=== PATIENT | female | born 1955 | race Caucasian/White ===

== ENCOUNTER 2023-08-11 12:02 | Emergency (ER) | payer MEDICARE, SELFPAY ==
[2023-08-11 12:03] VITALS: BP 117/73; PULSE 66; RESP 14; TEMP 36.8; O2SAT 98; BMI 23.4
--- NOTE | 2023-08-11 13:10 | CT_ITS ---
STUDY: CT ABDOMEN AND PELVIS WITH CONTRAST REASON FOR EXAM: Female, 68 years old. abdominal pain RADIATION DOSAGE (If Supplied By Facility): CTDIvol = ( 20.39 ) mGy, DLP = ( 538.78 ) mGycm TECHNIQUE: Transaxial images were obtained from the dome of the diaphragm to the symphysis pubis without oral contrast. IV 100mL Isovue-300 was administered. Sagittal and coronal images were reconstructed. Individualized dose optimization techniques were used for this CT. COMPARISON: 05/28/2015 CT abdomen and pelvis FINDINGS: The visualized lung bases are unremarkable. The visualized portions of the heart are within normal limits. Normal liver. Normal gallbladder and extrahepatic biliary system. Normal spleen. Normal pancreas. Normal bilateral adrenal glands. Normal right kidney. Normal left kidney. Normal visualized stomach. Normal small intestine. Normal colon. The appendix is visualized and appears normal. Normal abdominal aorta. Normal inferior vena cava. Normal retroperitoneum. Normal urinary bladder. Normal abdominal wall. Normal osseous structures. CT/Abdomen/Pelvis W IV Cont ONLY IMPRESSION: No evidence of acute intra-abdominal process or focal inflammation. Normal appendix. Electronically Signed: Nick Berry DO at 14:25 [facility] ,
--- OUTSIDE RECORDS SUMMARY | 2023-08-11 13:13 | XMS RPT_ITS | CCD ---
Author Name Unknown Address [id number] [place] [address] Organization [facility] Care Team Providers Care Biological Inspector Name Role Phone Timothy Ortega Unavailable Unavailable Ajay Walker Unavailable Unavailable Timothy Ortega Unavailable Unavailable Cammy Nuno Primary Care Provider [facility] NURSE, [id number] Unavailab le Unavailable Ajay Walker Unavailable Unavailable Unavailable Cash Temple Unavailable [phone] No, Physician Primary Care Provider UnavailBETINA Cadet Attending Padmaja BRO Chambers Referring Unavai wendi NO, PHYSICIAN Primary Care Unavailable MD JEFFREY GERMAN Referring Unavailable MD JEFFREY GERMAN Attending Unavailable Furness, Dr. Cash Ayala Primary Care Un available Furness, Dr. Cash Ayala Primary Care Un available Furness, Dr. Cash Ayala Referring Un available Furness, Dr. Cash Ayala Attending Un available Furness, Dr. Cash Ayala Primary Care Un available Furness, Dr. Cash Ayala Attending Un available Furness, Dr. Cash Ayala Referring Un available Furness Cash GUEVARA Primary Care Provider CASH TEMPLE Attending Unavailable CASH TEMPLE Primary Care Unavailable CASH TEMPLE Primary Care Unavailable Allergies Allergy Classification Reported Allergen(s) Allergy Type Date of Onset Reaction(s) Facility (1 source) ALLERGIES NOT ON FILE; Translations: [ALLERGIES NOT ON FILE] Propensity to adverse reactions (disorder) [facility] 3 Repository Medications Current Medications Medication Drug Class(es) Dates Sig (Normalized) Sig (Original) levothyroxine sodium 0.137 mg oral tablet (19 sources) l-Thyroxine Start: 04-19-2015 End: 07-13-2024 take 1 tablet by mouth once daily levothyroxine (Synthroid, Levoxyl) 137 mcg tablet Indications: Routine general medical examination at health care facility Take 1 tablet (137 mcg) by mouth once daily. 90 tablet 3 07/14/2023 07/13/2024 Active Completed/Discontinued Medications Medication Drug Class(es) Dates Sig (Normalized) Sig (Original) ascorbic acid 500 mg oral tablet (5 sources) Vitamin C Vitamin C 500 MG Oral Tablet Quantity: 0 Refills: 0 Ordered: 15-Oct-2021 DO Active ciprofloxacin 250 mg oral tablet (3 sources) Quinolone Antimicrobial Start: 10-26-2021 take 1 tablet by mouth twice daily Ciprofloxacin HCl - 250 MG Oral Tablet Take 1 tablet twice daily Quantity: 6 Refills: 0 Ordered: 26-Oct-2021 Russell Schaefer II, MD Start : 26-Oct-2021 Active estradiol 0.1 mg/ml vaginal cream (3 sources) Estrogen Start: 01-04-2019 Estradiol 0.1 MG/GM Vaginal Cream INSERT 1 APPLICATOR Daily 1/4 of applicator Quantity: 2 Refills: 3 Jordan GUEVARA, PhD, [facility] Start : 04-Jan-2019 Active 42.5 GM Tube 24 hr oxybutynin chloride 5 mg extended release oral tablet (2 sources) Cholinergic Muscarinic Antagonist Start: 10-14-2022 take 1 tablet by mouth once daily Oxybutynin Chloride ER 5 MG Oral Tablet Extended Release 24 Hour Take 1 tablet daily Quantity: 30 Refills: 1 Ordered: 14-Oct-2022 Cash Temple MD Start : 14-Oct-2022 Active tamsulosin hydrochloride 0.4 mg oral capsule (7 sources) alpha-Adrenergic Zaida Start: 10-01-2021 take 1 capsule by mouth once daily Tamsulosin HCl - 0.4 MG Oral Capsule TAKE 1 CAPSULE Daily Quantity: 30 Refills: 2 Ordered: 26-Nov-2021 Marian Schultz MD, MPH, Jeffrey Start : 01-Oct-2021 Active tretinoin 1 mg/ml topical cream (1 source) Retinoid Start: 06-15-2019 Tretinoin 0.1 % External Cream APPLY TOPICALLY EVERY DAY TO AFFECTED AREAS Quantity: 1 Refills: 0 Ordered: 15-Oct-2022 Cash Temple MD Start : 15-Jun-2019 Active vitamin b12 0.1 mg oral tablet (5 sources) Vitamin B12 Vitamin B-12 100 MCG Oral Tablet Quantity: 0 Refills: 0 Ordered: 15-Oct-2021 DO Active Vitamin D-3 TABS (7 sources) Vitamin D-3 TABS Quantity: 0 Refills: 0 Ordered: 15-Oct-2021 DO Active Zinc (5 sources) Zinc CAPS Quantity: 0 Refills: 0 Ordered: 15-Oct-2021 DO Active Problems Active Problems Problem Classification Problem Date Documented Date Episodic/Chronic Abdominal pain (2 sources) Generalized abdominal pain; Translations: [Abdominal pain, generalized] Episodic Anxiety disorders (1 source) Anxiety; Translations: [Anxiety] Chronic Complications of surgical procedures or medical care (1 source) Postablative hypothyroidism; 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 Genitourinary symptoms and ill-defined conditions (16 sources) Mixed urinary incontinence; Translations: [Mixed incontinence (male) (female)] Onset: 06-06-2020 06-06-2020 Chronic Malaise and fatigue (12 sources) Fatigue; Translations: [Other malaise and fatigue] Episodic Menopausal disorders (16 sources) Atrophy of vagina; Translations: [Postmenopausal atrophic vaginitis] Onset: 06-06-2020 06-06-2020 Chronic Other screening for suspected conditions (not mental disorders or infectious disease) (18 sources) Patient encounter status; Translations: [Other screening mammogram] Onset: 10-21-2022 Episodic Other skin disorders (1 source) Hyperpigmentation of skin; Translations: [Hyperpigmentation] Episodic Other skin disorders (2 sources) Seborrheic keratosis; Translations: [Other seborrheic keratosis] Episodic Retinal detachments; defects; vascular occlusion; and retinopathy (1 source) Macular hole of left eye; Translations: [Macular cyst, hole, or pseudohole, left eye] Chronic Substance-related disorders (16 sources) Smoker; Translations: [Tobacco use disorder] Onset: 06-06-2020 06-06-2020 Chronic Thyroid disorders (3 sources) Hypothyroidism caused by drug; Translations: [Hypothyroidism due to medicaments and other exogenous substances] Onset: 08-01-2015 06-06-2020 Chronic Thyroid disorders (12 sources) Atrophy of thyroid - acquired; Translations: [Other specified acquired hypothyroidism] Episodic Urinary tract infections (2 sources) Chronic interstitial cystitis; Translations: [Interstitial cystitis (chronic) without hematuria] Onset: 08-01-2015 06-06-2020 Chronic Urinary tract infections (1 source) Recurrent urinary tract infection; Translations: [Recurrent UTI] Episodic Past or Other Problems Problem Classification Problem Date Documented Da te Episodic/Chronic Abdominal hernia (1 source) Inguinal hernia; Translations: [Inguinal hernia] Onset: 09-28-2012 06-06-2020 Episodic Genitourinary symptoms and ill-defined conditions (20 sources) Dysuria; Translations: [Nocturia] Onset: 08-01-2015 06-06-2020 Episodic Residual codes; unclassified (6 sources) Past history of procedure; Translations: [Other specified personal history presenting hazards to health] Onset: 09-24-2021 Episodic Spondylosis; intervertebral disc disorders; other back problems (1 source) Neck pain; Translations: [Cervicalgia] Onset: 04-07-2018 06-06-2020 Episodic Unclassified (1 source) Onset: 07-14-2023 07-14-2023 NEGATED: Highlighted row has not occurred!Residual codes; unclassified (11 sources) Disease Episodic Results Test Name Value Interpretation Reference Range Facil ity Vital Signs Date Time Vital Sign Value Performing Clinician Facility 07-14-2023 10:25-0500 Body height 167.6 cm Cash Temple MD Work Phone: [facility] 07-14-2023 10:25-0500 Body mass index (BMI) [Ratio] 23.73 kg/m2 Cash Temple MD Work Phone: [facility] 07-14-2023 10:25-0500 Body weight 66.68 kg Cash Temple MD Work Phone: [facility] 07-14-2023 10:25-0500 Diastolic blood pressure 66 mm[Hg] Cash Temple MD Work Phone: [facility] 07-14-2023 10:25-0500 Heart rate 65 /min Cash Temple MD Work Phone: [facility] 07-14-2023 10:25-0500 SaO2% (BldA) [Mass fraction] 95 % Cash Temple MD Work Phone: [facility] 07-14-2023 10:25-0500 Systolic blood pressure 102 mm[Hg] Cash Temple MD Work Phone: [facility] 10-14-2022 13:58-0500 Body height 167.64 cm Cash Temple Work Phone: [facility] Work Phone: 10-14-2022 13:58-0500 Body mass index (BMI) [Ratio] 22.03 kg/m2 Cash Temple Work Phone: [facility] Work Phone: 10-14-2022 13:58-0500 Body surface area Derived from formula 1.7 m2 Cash Temple Work Phone: [facility] Work Phone: 10-14-2022 13:58-0500 Body weight 61.92 kg Cash Temple Work Phone: [facility] Work Phone: 10-14-2022 13:58-0500 Diastolic blood pressure 58 mm[Hg] Cash Temple Work Phone: [facility] Work Phone: 10-14-2022 13:58-0500 Heart rate 64 /min Cash Temple Work Phone: [facility] Work Phone: 10-14-2022 13:58-0500 SaO2% (BldA) [Mass fraction] 94 % Cash Temple Work Phone: [facility] Work Phone: 10-14-2022 13:58-0500 Systolic blood pressure 132 mm[Hg] Cash Temple Work Phone: [facility] Work Phone: 01-07-2022 09:30-0400 Body height 168.9 cm Betina Humphrey MD Work Phone: [facility] 01-07-2022 09:30-0400 Body mass index (BMI) [Ratio] 22.1 kg/m2 Betina Humphrey MD Work Phone: [facility] 01-07-2022 09:30-0400 Body temperature 97.9 [degF] Betina Humphrey MD Work Phone: [facility] 01-07-2022 09:30-0400 Body weight 63.05 kg Betina Humphrey MD Work Phone: [facility] 01-07-2022 09:30-0400 Diastolic blood pressure 85 mm[Hg] Betina Humphrey MD Work Phone: [facility] 01-07-2022 09:30-0400 Heart rate 55 /min Betina Humphrey MD Work Phone: [facility] 01-07-2022 09:30-0400 Respiratory rate 16 /min Betina Humphrey MD Work Phone: [facility] 01-07-2022 09:30-0400 SaO2% (BldA) [Mass fraction] 96 % Betina Humphrey MD Work Phone: [facility] 01-07-2022 09:30-0400 Systolic blood pressure 126 mm[Hg] Betina Humphrey MD Work Phone: [facility] 10-26-2021 13:31-0400 Body height 167.64 cm Cash Temple Work Phone: [facility]Fppdjcq[facility]Kdfhgno Work Phone: 10-26-2021 13:31-0400 Body mass index (BMI) [Ratio] 25.06 kg/m2 Cash Temple Work Phone: [facility]nl[facility] Work Phone: 10-26-2021 13:31-0400 Body surface area Derived from formula 1.8 m2 Cashclaudia Amosess Work Phone: VM-Pxineuw-Sbgsxeh Work Phone: 10-26-2021 13:31-0400 Body weight 70.42 kg Cashclaudia Amosess Work Phone: YB-Uannuho-Lfyymws Work Phone: 10-01-2021 10:59-0500 Body height 167.64 cm Cashclaudia Amosess Work Phone: HL-Vvlhsza-Sgigckb Work Phone: 10-01-2021 10:59-0500 Body mass index (BMI) [Ratio] 24.22 kg/m2 Cashclaudia Temple Work Phone: UM-Tmwfrmu-Xzpvqce Work Phone: 10-01-2021 10:59-0500 Body surface area Derived from formula 1.77 m2 Cashclaudia Temple Work Phone: JY-Zpixjpl-Mfmeenp Work Phone: 10-01-2021 10:59-0500 Body weight 68.06 kg Cashclaudia Temple Work Phone: HI-Ykrfgro-Gqszjma Work Phone: 10-01-2021 10:59-0500 Diastolic blood pressure 77 mm[Hg] Cash T Furness Work Phone: WX-Cfelsmj-Twurpsu Work Phone: 10-01-2021 10:59-0500 Heart rate 69 /min Cash T Furness Work Phone: DF-Hvucyjx-Jchiklc Work Phone: 10-01-2021 10:59-0500 Systolic blood pressure 142 mm[Hg] Cash T Furness Work Phone: [place]-Mvgsodb-Itmmmtt Work Phone: 09-09-2021 09:43-0500 Body height 167.64 cm Ajay Walker Work Phone: [employer] [facility] Work Phone: 09-09-2021 09:43-0500 Body mass index (BMI) [Ratio] 24.14 kg/m2 Ajay Walker Work Phone: [facility] [facility] Work Phone: 09-09-2021 09:43-0500 Body surface area Derived from formula 1.77 m2 Ajay Laniergrecia Work Phone: [facility] [facility] Work Phone: 09-09-2021 09:43-0500 Body temperature 97.5 [degF] Ajay Laniergrecia Work Phone: [facility] [facility] Work Phone: 09-09-2021 09:43-0500 Body weight 67.84 kg Ajay Walker Work Phone: [employer] [facility] Work Phone: 09-09-2021 09:43-0500 Diastolic blood pressure 78 mm[Hg] Ajay Walker Work Phone: [employer] [facility] Work Phone: 09-09-2021 09:43-0500 Heart rate 64 /min Ajay Walker Work Phone: [employer] [facility] Work Phone: 09-09-2021 09:43-0500 SaO2% (BldA) [Mass fraction] 95 % AmandoElena Alasradha Work Phone: [employer] [facility] Work Phone: 09-09-2021 09:43-0500 Systolic blood pressure 122 mm[Hg] Ajay Walker Work Phone: [facility] Work Phone: 06-06-2020 09:35-0400 BMI (Body Mass Index) 22.47 kg/m2 Cammy Nuno [facility] 06-06-2020 09:35-0400 Body weight 63.87 kg Cammy [facility] 06-06-2020 09:35-0400 BP Diastolic 73 mm[Hg] [facility] 06-06-2020 09:35-0400 BP Systolic 123 mm[Hg] [facility] 06-06-2020 09:35-0400 Height 168.6 cm [facility] 06-06-2020 09:35-0400 Pulse (Heart Rate) 64 /min [facility] 07-11-2019 11:21-0500 BMI (Body Mass Index) 23.21 kg/m2 Timothy Ortega [facility] [place] 2420 DO Work Phone: 07-11-2019 11:21-0500 Body weight 65.23 kg Timothy Jordna XQ-RTMNB-Cihhtx ke 2420 DO Work Phone: 07-11-2019 11:21-0500 BP Diastolic 78 mm[Hg] Timothy Ortega LT-KGGUE-Pplgdc ke 2420 DO Work Phone: 07-11-2019 11:21-0500 BP Systolic 123 mm[Hg] Timothy Sommers-Oz MG-SYCEJ-Wmdmup ke 2420 DO Work Phone: 07-11-2019 11:21-0500 BSA (Body Surface Area) 1.74 m2 Timothy Sommers-Oz ED-SWLLL-Kyocrbdm 2420 DO Work Phone: 07-11-2019 11:21-0500 Height 167.64 cm Timothy Ortega NX-QOTYJ-Ljzuma ke 2420 DO Work Phone: 07-11-2019 11:21-0500 Pulse (Heart Rate) 50 /min Timothy GAYLE-[facility]-[place] 2420 DO Work Phone: 07-11-2019 11:21-0500 Pulse Oximetry 97 % Timothy GAYLE-OBGYN-[place] [facility] 2420 DO Work Phone: Encounters Encounter Date Encounter Type Care Provider Facility Start: 07-14-2023 End: 07-14-2023 ambulatory [facility] Start: 07-14-2023 End: 07-14-2023 Encounter for general adult medical examination without abnormal findings [facility] Start: 07-14-2023 End: 07-14-2023 Assay of hemosiderin, quant Cash Temple MD Work Phone: [facility] Work Phone: Start: 07-14-2023 End: 07-14-2023 Patient encounter procedure Cash Temple MD Work Phone: [facility] Procedures Date Procedure Procedure Detail Performing Clinician Start: 10-21-2022 POCT UA AUTOMATED MA NUALLY RESULTED CASH TEMPLE Start: 10-21-2022 Mammography Cash viera MD Work Phone: Start: 10-14-2022 Lipid 1996 panel - S mike or Plasma Cash Temple MD Work Phone: Start: 10-14-2022 Thyrotropin [Units/v olume] in Serum or Plasma Cash Temple MD Work Phone: Start: 06-06-2020 Urnls dip stick/tabl et rgnt non-auto w/o micrscp Cammy Nuno Work Phone: Start: 07-26-2019 Mammography Betina campbell MD Work Phone: Start: 07-23-2019 Blood count complete auto&auto difrntl wbc Timothy Ortega Start: 07-23-2019 Comprehensive metabo lic 2000 panel Timothy Ortega Start: 07-23-2019 PT/INR Timothy Clinton Start: 07-23-2019 Type and Screen Timothy Ortega Start: 07-23-2019 Urnls dip stick/tabl et rgnt auto w/o microscopy Timothy Ortega Start: 07-11-2019 Urodynamics Timothy Clinton Start: 01-07-2017 Colonoscopy Csah viera MD Work Phone: Start: 01-07-2017 Colonoscopy Cash Temple Work Phone: Plan of Treatment Date Care Activity Detail Author Start: 10-15-2027 Lipid panel Lipid Panel [facility] Start: 01-07-2027 Screening for malignant neoplasm of colon [facility] Start: 10-22-2023 Screening for malignant neoplasm of breast Mammogram [facility] Start: 10-15-2023 Thyroid stimulating hormone measurement TSH Level [facility] Start: 04-15-2023 Influenza vaccination Influenza Vaccine (#1) [facility] Start: 11-25-2022 NPV, Provider: Isi Thompson, Status: Pen, Time: 1:00 PM NPV, Provider: Isi Thompson, Status: Pen, Time: 1:00 PM [facility] Work Phone: Start: 04-15-2022 Influenza vaccination Sequential Influenza Vaccine (Season Ended) [facility] Start: 10-22-2021 FUV, Provider: Jeffrey German, Status: Pen, Time: 11:00 AM FUV, Provider: Jeffrey German, Status: Pen, Time: 11:00 AM -[facility] Work Phone: Start: 10-15-2021 URODYNAMIC, Provider: URODYNAMKAYLA OLSEN, Status: Pen, Time: 11:15 AM URODYNAMIC, Provider: URODYNAMICS KAYLA CHEN, Status: Pen, Time: 11:15 AM [facility] [place] Phone: Start: 10-01-2021 NPV, Provider: Jeffrey German, Status: Pen, Time: 11:30 AM NPV, Provider: Jeffrey German, Status: Pen, Time: 11:30 AM -[facility] Work Phone: Start: 2021 Fall risk assessment Falls Risk Assessment [facility] Start: 2021 Pneumococcal Vaccine: 65+ Years (1 - PCV) Pneumococcal Vaccine: 65+ Years (1 - PCV) [facility] Start: 2021 Pneumococcal Vaccine: Age 65+ (1 - PCV) Pneumococcal Vaccine: Age 65+ (1 - PCV) [facility] Start: 07-26-2020 Screening for malignant neoplasm of breast Mammogram [facility] Start: 04-15-2020 Influenza vaccination [facility] Start: 2006 Administration of herpes zoster vaccine Zoster Vaccines (1 of 2) [facility] Start: 2006 Colonoscopy COLORECTAL CANCER SCREENING DISCUSSION [facility] Start: 2006 Screening for malignant neoplasm of colon [facility] Start: 2006 Zoster vaccine hzv live for subcutaneous use ZOSTER (SHINGLES) VACCINE (1 of 2) [facility] Start: 2006 Zoster Vaccines (1 of 2) Zoster Vaccines (1 of 2) [facility] Start: 1996 Fasting lipid profile LIPID SCREENING [facility] Start: 1996 Screening mammography MAMMOGRAM SCREENING DISCUSSION [facility] Start: 1978 DTaP/Tdap/Td Vaccines (1 - Tdap) DTaP/Tdap/Td Vaccines (1 - Tdap) [facility] Start: 1977 Screening for malignant neoplasm of cervix CERVICAL CANCER SCREENING DISCUSSION [facility] Start: 1975 Third diphtheria, tetanus and acellular pertussis (DTaP) vaccination TDAP (ADULT) [facility] Start: 1974 Hepatitis C screening Hepatitis C Screening [facility] Start: [address] [facility] Start: 1971 HIV screening HIV Screening [facility] Start: 1969 HIV screening HIV SCREENING DISCUSSION [facility] Start: 1968 Depression screening using PHQ-9 (Patient Health Questionnaire 9) score Depression Screening (PHQ-2/9) [facility] Start: 1961 COVID-19 Vaccine (#1) COVID-19 Vaccine (#1) [facility] Start: 1959 History and physical examination, annual for health maintenance Wellness Visit [facility] Start: 1956 COVID-19 Vaccine (#1) COVID-19 Vaccine (#1) [facility] Start: 1956 Hepatitis C antibody, confirmatory test HEPATITIS C VIRUS SCREENING [facility] Start: 1956 Medicare Annual Wellness Visit Medicare Annual Wellness Visit (AWV) [facility] Start: 1956 Screening for malignant neoplasm of colon [facility] Start: 1956 Screening for osteoporosis [facility] Start: 1956 Tetanus vaccination Tetanus: Every 10yrs [facility] Payers Date Payer Category Payer Medicare [id number] 2021 Medicare [id number] 2019 Unknown LINDSEY PORTILLO O PPO POS [id number] 2019-Present [id number] 1956 Unknown [id number] 1956 Unknown [id number] 1956 Unknown [id number] 1956 Unknown [id number] 1956 Unknown [id number] 1956 Unknown [id number] Unknown Social History Date Type Detail Facility Assertion Unknown if ever smoked [facility] 8069 DO Work Phone: Start: 06-06-2020 End: 01-07-2022 Tobacco smoking status NHIS Current every day smoker [facility] History of tobacco use Cigarette Smoker [employer] [facility] Start: 06-06-2020 End: 01-07-2022 Cigarettes smoked current (pack per day) - Reported [employer] Start: 06-06-2020 Tobacco use and exposure Current user [facility] Start: 06-06-2020 End: 01-07-2022 Alcohol intake [facility] (finding[facility] Start: 1955 Sex Assigned At Not on file [employer] [facility] Start: 12-28-2021 End: 07-14-2023 Exposure to SARS-CoV-2 (event) Not sure [employer] [facility] Start: 01-07-2022 End: 07-14-2023 Tobacco use and exposure Smokeless tobacco non-user [facility] Start: 07-14-2023 Tobacco smoking stat NHIS Never smoked tobacco [facility] Work Phone: Start: 07-14-2023 Alcohol intake Lifetime non-d renato (finding) [facility] Work Phone: Gender identity Not on file [facility] Work Phone: Functional Status Date Assessment Result Facility NEGATED: Highlighted row Functional performance Functional status health issues are not documented Disease YI-SGQMC-Mvxzehfs 2420 DO Work Phone: Mental Status Date Assessment Result Facility NEGATED: Highlighted row Cognitive function [Interpretation] Cognitive status health issues are not documented Disease DV-QMKHV-Ssbnogfu 2420 DO Work Phone: History of Present illness Narrative 07-14-2023 Cash Temple MD - 07/14/2023 10:20 AM EST Note Date & Type Note Facility 07-14-2023 History of Present illness Narrative Subjective Reason for Visit: Gina Saavedra is an 68 y.o. female here for a Medicare Wellness visit. Past Medical, Surgical, and Family History reviewed and updated in chart. Reviewed all medications by prescribing practitioner or clinical pharmacist (such as prescriptions, OTCs, herbal therapies and supplements) and documented in the medical record. HPI Mammogram 2022 is okay Colonoscopy 2017, 10 years Recommend yearly flu shot Recommend yearly COVID shot. She has had COVID twice. Recommend Shingrix Recommend Prevnar 20 Patient Care Team: Cash Temple MD as PCP - General Review of Systems Constitutional: Negative for fatigue. Eyes: Negative for visual disturbance. Respiratory: Negative for cough, chest tightness and shortness of breath. Cardiovascular: Negative for chest pain and palpitations. Gastrointestinal: Negative for abdominal pain, constipation and diarrhea. Genitourinary: Positive for difficulty urinating, frequency and urgency. Skin: Negative for rash. Neurological: Negative for headaches. Objective Vitals: BP 102/66 Pulse 65 Ht 1.676 m (5' 6 ) Wt 66.7 kg (147 lb) SpO2 95% BMI 23.73 kg/m Physical Exam Constitutional: Appearance: Normal appearance. HENT: Head: Normocephalic and atraumatic. Cardiovascular: Rate and Rhythm: Normal rate and regular rhythm. Heart sounds: Normal heart sounds. Pulmonary: Effort: Pulmonary effort is normal. Breath sounds: Normal breath sounds. Skin: General: Skin is warm and dry. Neurological: General: No focal deficit present. Mental Status: She is alert and oriented to person, place, and time. Psychiatric: Mood and Affect: Mood normal. Behavior: Behavior normal. Thought Content: Thought content normal. Judgment: Judgment normal. Assessment/Plan Problem List Items Addressed This Visit None Visit Diagnoses Routine general medical examination at health care facility - Primary documented in this encounter [facility] Work Phone: History of Present illness Narrative 01-07-2022 Betina Humphrey MD - 01/07/2022 9:38 AM EDT Note Date & Type Note Facility 01-07-2022 History of Presen t illness Narrative HISTORY Patient Name: Gina Saavedra Date of Exam: 01/07/2022 Date of Surgery: 01/07/22 Chief Complaint Patient presents with Perioperative Medical Evaluation Macular cyst hole or pseudohole left eye Reason for visit/consultation: Medical risk stratification for same day surgery History of current illness: Gina Saavedra is a 66 y.o. female who presents for preoperative medical risk stratification prior to eye surgery at the request of Bro Nassar* Her medical conditions include: hypothyroid Patient Active Problem List Diagnosis Chronic interstitial cystitis Hypothyroidism due to medication Past Medical History: Diagnosis Date Disease of thyroid gland Type of anesthesia: Regional Anesthesia History: Yes, without complications Past Surgical History: Procedure Laterality Date HERNIA REPAIR No Known Allergies Review of Systems Constitutional: Negative for fever. HENT: Negative for nosebleeds. Eyes: Positive for visual disturbance. Negative for discharge. Respiratory: Negative for shortness of breath. Cardiovascular: Negative for chest pain. Gastrointestinal: Negative for abdominal pain. Skin: Negative for rash. Neurological: Negative for seizures. Hematological: Does not bruise/bleed easily. Psychiatric/Behavioral: Negative for confusion. Social History Social History Tobacco Use Smoking status: Every Day Packs/day: 1.00 Pack years: 0.00 Types: Cigarettes Smokeless tobacco: Never Substance Use Topics Alcohol use: Not Currently Social History Substance and Sexual Activity Drug Use Not on file Marital Status: Unknown History reviewed. No pertinent family history. Current Outpatient Medications Medication Sig Dispense Refill levothyroxine (SYNTHROID, LEVOTHROID) 137 MCG tablet Take 137 mcg by mouth daily . No current facility-administered medications for this visit. PHYSICAL Patient Name: Gina Saavedra Age: 66 y.o. BP 126/85 Pulse (!) 55 Temp 97.9 F (36.6 C) (Infrared) Resp 16 Ht 5' 6.5 Wt 63 kg (139 lb) SpO2 96% BMI 22.10 kg/m Physical Exam Vitals and nursing note reviewed. Constitutional: General: She is not in acute distress. Appearance: She is well-developed. She is not diaphoretic. HENT: Head: Normocephalic and atraumatic. Eyes: General: No scleral icterus. Right eye: No discharge. Left eye: No discharge. Cardiovascular: Rate and Rhythm: Normal rate and regular rhythm. Heart sounds: No murmur heard. Pulmonary: Effort: Pulmonary effort is normal. No respiratory distress. Breath sounds: Normal breath sounds. No wheezing or rales. Abdominal: General: Bowel sounds are normal. There is no distension. Palpations: Abdomen is soft. Tenderness: There is no abdominal tenderness. Musculoskeletal: Cervical back: Normal range of motion. Right lower leg: No edema. Left lower leg: No edema. Skin: General: Skin is warm and dry. Neurological: Mental Status: She is alert and oriented to person, place, and time. Psychiatric: Behavior: Behavior normal. Thought Content: Thought content normal. Judgment: Judgment normal. EKG Results: Not indicated No results found for this visit on 01/07/22. IMPRESSION/PLAN: Gina Saavedra is a 66 y.o. female who presents for preoperative medical risk stratification prior to eye surgery at the request of Bro Nassar* Risk factors for surgery include: Hypothyroid- chronic, stable Preoperative recommendations: I reviewed the patient's pertinent medical history and medications. No additional recommendations or changes are warranted prior to her scheduled surgery. Risk Assessment: The patient is currently in a medically optimal state and the risk of surgery is acceptable at this time. Questions regarding her medical issues were answered and discussed. Postoperative recommendations: Patient was instructed to continue her current medical regimen following surgery, unless instructed otherwise by her surgeon. The patient will follow up with her PCP for any additional medical concerns. This patient has an acceptable cardiac risk for the intended procedure, it is my professional opinion that the patient does not have any medical condition at this present time that significantly increase the risk for an adverse outcome. Thank you for the opportunity to evaluate your patient. Please feel free to contact our office with any questions. A copy of this evaluation was provided to the referring physician. documented in this encounter [facility] Evaluation note Note Date & Type Note Facility documented in this encounter [facility] Evaluation note Note Date & Type Note Facility documented in this encounter [facility] Work Phone: History of Present illness Narrative Note Date & Type Note Facility History of Present illness Narrative having long standing urination issues that are getting worse. needs refer to urology.Hypothyroidism - No fatigue/cold intolerance/hair changes/skin changes/weight gain.last TSH 5.1. no med adjustment?MMG ? 2019colonoscopy - ? when.labs todayEDG 2017 - okcolonoscopy 2017 - no polyps. [facility] Work Phone: History of Present illness Narrative Note Date & Type Note Facility History of Present illness Narrative 66-year-old very pleasant patient presents to the office today to Establish. LUTs are chronic and mild. Denies frequency and urgency. Denies dysuria and hematuria..Unable to empty bladder... Nocturia x4-5.. Caffeine does worsen LUTs.. No medications for LUTs..No Hx of Kidney Stones. Hx of UTI's. Patient reports pain and discomfort while trying to void urine, 4/10, does subside when she actually passes urine, intermittent, present for the past couple of years documentation, no fever no chills, no nausea no vomiting, no constipation. Her symptoms are associated with recurrent UTIs. Today her PVR was around 200, urine was positive. Patient has a history of C. difficile because of prolonged course of oral antibiotic. She reports needing to use Valsalva and abdominal pressure to initiate urine stream. She reports frequency and urgency with nocturia 3-4 times at night.We had a very long and extensive discussion with the patient regarding the pathophysiology, differential diagnosis, risk factor, management, natural history, incidence and diagnostic work-up of the condition. We discussed that she might have an element of neurogenic bladder that might be causing her symptoms. We discussed cystoscopy, urodynamics, urine culture and treat accordingly, also discussed tamsulosin but 1 mg p.o. nightly mechanism of action, risk, benefit, potential complication adverse event that might help her conditions. We discussed and instructed her to do clean catheterization which she completely declined at this point. [facility] Work Phone: History of Present illness Narrative Note Date & Type Note Facility History of Present illness Narrative having long standing urination issues that are getting worse. needs refer to urology.Hypothyroidism - No fatigue/cold intolerance/hair changes/skin changes/weight gain.last TSH 5.1. no med adjustment?MMG ? 2019colonoscopy - ? when.labs todayED 2017 - okcolonoscopy 2017 - no polyps. [facility] Work Phone: History of Present illness Narrative Note Date & Type Note Facility History of Present illness Narrative having long standing urination issues that are getting worse. needs refer to urology.Hypothyroidism - No fatigue/cold intolerance/hair changes/skin changes/weight gain.last TSH 5.1. no med adjustment?MMG ? 2019colonoscopy - ? when.labs todayEDG 2017 - okcolonoscopy 2017 - no polyps. [facility] Work Phone: History of Present illness Narrative Note Date & Type Note Facility History of Present illness Narrative Multiple lesions on her back consistent with seborrheic keratoses. The one that is just in the middle lower back on the right above the bra line has a little bit of moderate brown color in the upper right quadrant. Continue to watch the lesions for now if they change in color we can consider biopsy.Mammogram todayColonoscopy 2017, 10 years.Hypothyroidism - No fatigue/cold intolerance/hair changes/skin changes/weight gain.Seen specialist before still having troubles with her bladder. She cannot remember if she ever tried an overactive bladder medication. The Flomax did not help.Oxybutynin 5 mg dailyRefer to urology, [facility]. [facility] Work Phone: History of Present illness Narrative Note Date & Type Note Facility History of Present illness Narrative Multiple lesions on her back consistent with seborrheic keratoses. The one that is just in the middle lower back on the right above the bra line has a little bit of moderate brown color in the upper right quadrant. Continue to watch the lesions for now if they change in color we can consider biopsy.Mammogram todayColonoscopy 2017, 10 years.Hypothyroidism - No fatigue/cold intolerance/hair changes/skin changes/weight gain.Seen specialist before still having troubles with her bladder. She cannot remember if she ever tried an overactive bladder medication. The Flomax did not help.Oxybutynin 5 mg dailyRefer to urology, [facility]. [facility] Work Phone: Summary Purpose Family History No Family History Records FoundUnknown Family Member Name Dates Details Family history unknown(V49.8 9, Z78.9) Comments:Other Status:Active Unknown Family Member Name Dates Details Family history unknown(V49.8 9, Z78.9) Comments:Other Status:Active Unknown Family Member Name Dates Details Family history unknown(V49.8 9, Z78.9) Comments:Other Status:Active Unknown Family Member Name Dates Details Family history unknown: Othe r(V49.89, Z78.9) Status:Active Unknown Family Member Name Dates Details Family history unknown: Othe r(V49.89, Z78.9) Status:Active Unknown Family Member Name Dates Details Family history unknown: Othe r(V49.89, Z78.9) Status:Active Unknown Family Member Name Dates Details Family history unknown: Othe r(V49.89, Z78.9) Status:Active Unknown Family Member Name Dates Details Family history unknown: Othe r(V49.89, Z78.9) Status:Active Unknown Family Member Name Dates Details Family history unknown: Othe r(V49.89, Z78.9) Status:Active Unknown Family Member Name Dates Details Family history unknown: Othe r(V49.89, Z78.9) Status:Active Unknown Family Member Name Dates Details Family history unknown: Othe r(V49.89, Z78.9) Status:Active Unknown Family Member Name Dates Details Family history unknown: Othe r(V49.89, Z78.9) Status:Active Unknown Family Member Name Dates Details Family history unknown: Othe r(V49.89, Z78.9) Status:Active Unknown Family Member Name Dates Details Family history unknown: Othe r(V49.89, Z78.9) Status:Active Unknown Family Member Name Dates Details Family history unknown: Othe r(V49.89, Z78.9) Status:Active Advance Directives No Advanced Directives Records FoundNo Advanced Directives Records FoundNo Advanced Directives Records FoundNo Advanced Directives Records FoundNo Advanced Directives Records FoundNo Advanced Directives Records FoundNo Advanced Directives Records FoundNo Advanced Directives Records Found History of Present Illness * Cammy Nuno MD - 06/06/2020 9:00 AM EDT Chief Complaint Patient presents with New Patient Thyroid Problem Patient states 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 Patient states she had a laproscopy a year ago and didn't find anyting wrong. Anxiety Patient states she has been anxious and overwhelmed recently Skin Discoloration Patient states she has a dark spot on the end of her nose she would like looked at,. HPI: Regarding Hypothyroidism: She presents to review her labs for her hypothyroidism. These reveal that her medication dose does not need to be adjusted at this time. Her TSH is in the normal range and her Free T4 is also normal. She denies any symptoms associated with hyperthyroidism. No tachycardia, diarrhea, heat intolerance, tremor, etc. She denies any symptoms associated with hypothyroidism: constipation, dry skin, hair loss. She states she has been taking her medication as prescribed on an empty stomach in the morning without missing doses. Urinary concerns: has a history of recurrent infections, was treated with multiple antibiotics and ended up getting clostridium difficile. She had a surgery and they dilated her urethra, she doesn't drink water drinks a lot of coffee, has to strain to urinate. Was told she has interstitial cystitis, she has been to several urologists. Regarding Anxiety/Depression: Gina presents with the complaint of anxiety/depression which is currently under poor control. She reports the following triggers: stress, a son was killed in a motorcycle accident in 2007 Other symptoms include: watches news constantly, anxious about world events, anxious about her other son, Current treatment includes: see med list Significant medical conditions: see problem list Skin discoloration: on the tip of her nose, just noticed it within the past two weeks ROS: Review of Systems Nurse Note: Review of Systems Constitutional: Negative for fatigue and fever. HENT: Negative for congestion, ear pain and sore throat. Eyes: Negative for pain and redness. Respiratory: Negative for cough and shortness of breath. Cardiovascular: Negative for chest pain and palpitations. Gastrointestinal: Negative for abdominal pain, constipation, diarrhea, nausea and vomiting. Genitourinary: Positive for difficulty urinating and frequency. Negative for dysuria. Musculoskeletal: Negative for arthralgias and myalgias. Skin: Negative for rash and wound. Neurological: Negative for dizziness and headaches. All other systems reviewed and are negative. Past medical/family/social history: reviewed and updated, see documented in patient's chart. Physical Exam: BP 123/73 Pulse 64 Ht 5' 6.38 (1.686 m) Wt 140 lb 12.8 oz (63.9 kg) BMI 22.47 kg/m Smoking Status Current Every Day Smoker Body mass index is 22.47 kg/m . Physical Exam HENT: Head: Normocephalic and atraumatic. Eyes: Pupils: Pupils are equal, round, and reactive to light. Neck: Musculoskeletal: Normal range of motion and neck supple. Cardiovascular: Rate and Rhythm: Normal rate and regular rhythm. Heart sounds: Normal heart sounds. Pulmonary: Effort: Pulmonary effort is normal. Breath sounds: Normal breath sounds. Abdominal: Palpations: Abdomen is soft. Skin: General: Skin is warm and dry. Comments: Tip of nose with hyperpigmentation Neurological: Mental Status: She is alert and oriented to person, place, and time. Psychiatric: Mood and Affect: Mood is anxious. Assessment/Plan: 1. Postablative hypothyroidism Update labs - TSH; Future - T4 FREE; Future 2. Recurrent UTI Consider referral to uro/test engine evaluator if desired, she prefers to wait for now - POCT URINALYSIS DIPSTICK NON AUTOMATED 3. Anxiety Discussed that a lot of her anxiety is situational, recommend she consider counseling. Discussed some ideas to help reduce her anxiety, such as not watching the news, removing herself from her son's relationship and guiding them to resolving their own issues 4. Hyperpigmentation Observe area and if there is any change then return for biopsy Orders and follow up as documented in patient record; There are no discontinued medications. Requested Prescriptions No prescriptions requested or ordered in this encounter Patient was advised to call with any questions or concerns. If symptoms worsen patient was advised to follow up in our office or the Emergency Dept. Benefits, Risks, Contraindications, and Complications of recommended treatments were explained the patient understands and agrees to proceed with plan. Cammy Nuno MD 06/06/2020 * Izabella Romo - 06/06/2020 9:00 AM EDT Nurse Note: Review of Systems Constitutional: Negative for fatigue and fever. HENT: Negative for congestion, ear pain and sore throat. Eyes: Negative for pain and redness. Respiratory: Negative for cough and shortness of breath. Cardiovascular: Negative for chest pain and palpitations. Gastrointestinal: Negative for abdominal pain, constipation, diarrhea, nausea and vomiting. Genitourinary: Positive for difficulty urinating and frequency. Negative for dysuria. Musculoskeletal: Negative for arthralgias and myalgias. Skin: Negative for rash and wound. Neurological: Negative for dizziness and headaches. All other systems reviewed and are negative. documented in this encounter Assessments Diagnosis Postablative hypothyroidism- Primary Other postablative hypothyroidism Recurrent UTI Urinary tract infection, site not specified Anxiety Anxiety state, unspecified Hyperpigmentation Dyschromia, unspecified Chief Complaint EST CARE/ COVID 1MO AGO W/ CONSTIPATIONEstablishEST CARE/ COVID 1MO AGO W/ CONSTIPATIONUrodynamics completed today.EST CARE/ COVID 1MO AGO W/ CONSTIPATION incomplete Bladder Emptying, Dysuriaincomplete Bladder Emptying, DysuriaLESION ON BACKLESION ON BACK Additional Source Comments INFORMATION SOURCE (unrecogn ized section and content) DATE CREATED AUTHOR AUTHOR'S ORGANIZ ATION 07/27/2019 [facility] DATE CREATED AUTHOR AUTHOR'S ORGANIZ ATION 05/15/2021 [facility] DATE CREATED AUTHOR AUTHOR'S ORGANIZ ATION 01/08/2022 [facility] DATE CREATED AUTHOR AUTHOR'S ORGANIZ ATION 10/16/2022 [facility] DATE CREATED AUTHOR AUTHOR'S ORGANIZ ATION 10/16/2022 [employer] DATE CREATED AUTHOR AUTHOR'S ORGANIZ ATION 10/24/2022 [facility] DATE CREATED AUTHOR AUTHOR'S ORGANIZ ATION 07/17/2023 [facility] Reason for Visit (unrecogniz ed section and content) Reason Comments Perioperative Medical Evaluation 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 This clinical summary was aggregated from multiple sources. Caution should be exercised in using it in the provision of clinical care. This summary normalizes information from multiple sources, and as a consequence, information in this document may materially change the coding, format and clinical context of patient data. In addition, data may be omitted in some cases. CLINICAL DECISIONS SHOULD BE BASED ON THE PRIMARY CLINICAL RECORDS. [facility]. provides no warranty or guarantee of the accuracy or completeness of information in this document.
[2023-08-11] MEDS: 0.9% Normal Saline (1000mL) 1,000 ML 1000 ML IV (13:20)
[2023-08-11 13:31] LABS: Absolute Lymphocyte Count 1.22 X10^3/uL (0.83-4.51); Absolute Neutrophil Count 2.3 X10^3/uL (2.0-7.7); Basophil# 0.03 X10^3/uL; Basophil% 0.7 % (0-1); Eosinophil# 0.12 X10^3/uL; Eosinophils% 2.9 % (0-5); Hematocrit 41.6 % (37-47); Hemoglobin 13.6 g/dL (12.0-15.0); Lymphocyte # 1.22 X10^3/ul (0.83-4.51); Lymphocyte % 29.5 % (19-41); Mean Corp Hgb Conc 32.7 g/dL (32-36); Mean Corpuscular Hgb 30.6 pg (27.0-32.0); Mean Corpuscular Volume 93.7 fL (81-99); Mean Platelet Vol. 9.5 fl (6.2-12.0); Monocyte# 0.44 X10^3/uL; Monocyte% 10.6 % (0-10); NRBC Flagged by Analyzer 0 % (0-5); Neutrophil # 2.31 X10^3/uL (2.7-7.7); Neutrophil % 55.8 % (47-70); Platelet Count 196 K/mm3 (150-450); RBC Distribution Width CV 12.1 % (11.6-14.6); Red Blood Count 4.44 M/mm3 (4.2-5.4); White Blood Count 4.1 K/mm3 (4.4-11.0)
[2023-08-11 13:32] LABS: Bacteria 0 SEEN /hpf (None Seen); Mucous, Urine 0 SEEN /hpf (<or=2+); Red Blood Cells-Urine 0 SEEN /hpf (0-5); Squamous Epithelial Cells - UA 0 SEEN /hpf (5-10); White Blood Cells 0 SEEN /hpf (0-5)
[2023-08-11 13:37] LABS: Color, Urine Yellow (Yellow); Glucose, Dipstick Normal (Normal); Ketone-Dipstick Negative (Negative); Leukocyte Esterase-Dipstick Negative /ul (Negative); Nitrite-Dipstick Negative (Negative); Occult Blood-Urine Negative /ul (Negative); Protein-Dipstick Negative (Negative); Specific Gravity, Urine 1.015 (1.002-1.030); Urine Bilirubin Dipstick Negative (Negative); Urine Clarity Sl. Cloudy (Clear); Urine Urobilinogen Normal (Normal); Urine pH 6.5 (5.0 - 8.0)
[2023-08-11 13:49] LABS: ALB/GLOB Ratio 0.9 RATIO (0.9-2.4); AST(SGOT) 12 U/L (15-37); Alanine Aminotransfer ALT/SGPT 26 U/L (13-56); Albumin, Serum 3.3 g/dL (3.2-5.0); Alkaline Phosphatase 61 U/L (45-117); Anion Gap 2 (5-15); BUN 14 mg/dL (7-18); BUN/Creat Ratio 17.1 RATIO (10-20); Calcium,Total 9.3 mg/dL (8.5-10.1); Chloride 105 mmol/L (98-107); Creatinine, Serum 0.82 mg/dL (0.55-1.02); EST Glomerular Filtration Rate 74 mL/min (>60); Est Glom Filt Rate - Afr Amer 90 mL/min (>60); Estimated Creatinine Clearance 62.32 ml/min; Globulin 3.5 g/dL (2.2-4.2); Glucose 87 mg/dL (74-106); Lipase 41 U/L (13-75); Potassium 4.1 mmol/L (3.5-5.1); Protein, Total 6.8 g/dL (6.4-8.2); Sodium Level 139 mmol/L (136-145)
[2023-08-11 14:46] VITALS: BP 137/82; PULSE 84; RESP 16; O2SAT 96
--- NOTE | 2023-08-11 15:10 | EX.ED.DYSGE1 ---
HPI History of Present Illness Chief Complaint: Abd Pain Informant: patient and spouse/S.O. Narrative Narrative: 68-year-old female presenting to the emergency room with abdominal pain. Patient had some constipation which has resolved. She has for the past 2 days she has been in bed. She notes mostly lower abdominal pain that is contraction-like. She notes that she has been evaluated for inability to fully empty her bladder. She denies any new symptoms with that. She notes some radiation to her back. No fevers. No abnormal vaginal bleeding. PFSH PFSH Home Medications Synthroid 125 mcg PO DAILY 08/17/14 [History Last Taken Unknown] etodolac 300 mg capsule 300 mg PO TIDCM ##30 08/17/14 [Rx Last Taken Unknown] hydrocodone-acetaminophen 5-325mg 5mg-325mg 1 - 2 tab PO Q6H PRN PRN Pain ##20 08/17/14 [Rx Last Taken Unknown] magnesium citrate 300 ml PO X1 #1,200 mL 05/28/15 [Rx Last Taken Unknown] dicyclomine 20 mg tablet 20 mg PO TID PRN abdominal pain #15 tabs 08/11/23 [Rx Last Taken Unknown] oxycodone-acetaminophen 5 mg-325 mg tablet 1 tab PO Q6H PRN PRN Pain 3 days #12 TABLETS 08/11/23 [Rx Last Taken Unknown] Allergy/AdvReac Type Severity Reaction Status Date / Time No Known Allergies Allergy Verified 08/11/23 12:03 Social History Smoking Status: Current some day smoker tobacco type: cigarettes ROS ROS ED Constitutional Constitutional ED: Denies chills, fever(s) or weight loss Eyes Eyes: Denies change in vision or diplopia ENT ENT ED: Denies ear pain, rhinorrhea or sore throat Cardiovascular Cardiovascular: Denies chest pain, orthopnea, palpitations or racing heartbeat Respiratory/Chest Respiratory/Chest: Denies cough, dyspnea or orthopnea Gastrointestinal Gastrointestinal: Reports abdominal pain, constipation and nausea; Denies diarrhea or vomiting Genitourinary Genitourinary ED: Reports urinary frequency and other Details: Inability to empty bladder (chronic) ; Denies dysuria or hematuria Musculoskeletal Musculoskeletal: Reports back pain; Denies arthralgias or myalgias Integumentary Denies abscess or rash Neurologic Neurologic: Denies headache(s) or weakness Psychiatric Psychiatric: Denies anxiety, depression, suicidal ideation or suicidal thoughts Endocrine Endocrinology: Denies polydipsia, polyphagia or polyuria Allergic/Immunologic Allergic/Immunologic ED: Denies mouth swelling, tongue swelling or urticaria EXAM Physical Exam Const Vital Signs: 08/11/23 12:03 08/11/23 14:46 Temperature 98.2 F Temperature Source Temporal Pulse Rate 66 84 Respiratory Rate 14 16 Blood Pressure 117/73 137/82 H Blood Pressure Mean 87 100 Pulse Ox 98 96 Oxygen Delivery Method Room Air Room Air Positive well nourished and well developed General Appearance ED: well developed HEENT Reports normocephalic, head/scalp atraumatic and moist mucous membranes Eyes PERRL and EOMs intact bilaterally Neck no lymphadenopathy, supple and no JVD Resp normal respiratory effort and clear to auscultation bilaterally Cardio regular rate, regular rhythm and no murmurs GI Inspection: Negative for abdominal distention Auscultation: normoactive bowel sounds Palpation: soft and tender suprapubic; Negative for guarding or rebound tenderness present Back/Spine no CVA tenderness and normal ROM Extremity normal to inspection General Extremety ED: Negative for edema General Extremity: Negative for edema Neuro oriented x3 and CN's II-XII intact bilaterally Sensorium / Orientation: alert Motor Exam: strength 5/5 throughout Psych mental status grossly normal Mood & Affect: Negative for depressed or tearful Skin no rashes or lesions noted and no wounds MDM MDM MDM Narrative Medical decision making narrative: Basic blood work showed a white count of 4.1. Normal creatinine. Liver enzymes are normal. Lipase is normal. Urinalysis shows no overt infection. CT of the and pelvis with IV contrast does not demonstrate anything acute to explain her symptoms. At this point I do not have a clear etiology for the patient's symptoms. I do feel that she can be discharged home with follow-up if not improving return if worsening. I will write for Bentyl and a small amount of pain medication. History & Record Review Discussion w/independent historian: Patient and Significant other Lab Data Attestation: I reviewed the patient's lab results. Labs: Laboratory Results - last 24 hr 08/11/23 08/11/23 13:04 13:25 WBC 4.1 L RBC 4.44 Hgb 13.6 Hct 41.6 MCV 93.7 MCH 30.6 MCHC 32.7 RDW Std Deviation 42.0 RDW Coeff of Wilfred 12.1 Plt Count 196 MPV 9.5 Immature Gran % (Auto) 0.500 Neut % (Auto) 55.8 Lymph % (Auto) 29.5 [place] % (Auto) 10.6 H Eos % (Auto) 2.9 Baso % (Auto) 0.7 Absolute Neuts (auto) 2.3 Absolute Lymphs (auto) 1.22 Nucleated RBC % 0 Sodium 139 Potassium 4.1 Chloride 105 Carbon Dioxide 32.0 Anion Gap 2 L BUN 14 Creatinine 0.82 Estim Creat Clear Calc 62.32 Est GFR (MDRD) Af Amer 90 Est GFR (MDRD) Non-Af 74 BUN/Creatinine Ratio 17.1 Glucose 87 Calcium 9.3 Total Bilirubin 0.10 L AST 12 L ALT 26 Alkaline Phosphatase 61 Total Protein 6.8 Albumin 3.3 Globulin 3.5 Albumin/Globulin Ratio 0.9 Lipase 41 Urine Color Yellow Urine Clarity Sl. Cloudy Urine pH 6.5 Ur Specific [place] 1.015 Urine Protein Negative Urine Glucose (UA) Normal Urine Ketones Negative Urine Occult Blood Negative Urine Nitrite Negative Urine Bilirubin Negative Urine Urobilinogen Normal Ur Leukocyte Esterase Negative Urine RBC 0 SEEN Urine WBC 0 SEEN Ur Squamous Epith Cells 0 SEEN Urine Bacteria 0 SEEN Urine Mucus 0 SEEN Radiography Diagnostic Testing: Clinical Impression(s) from Imaging Studies Abdomen/Pelvis CT 08/11/23 13:10 IMPRESSION: No evidence of acute intra-abdominal process or focal inflammation. Normal appendix. Electronically Signed: Nick Berry DO at 14:25 EST , Discharge Plan Triage Chief Complaint: Abd Pain ED Provider: Rock Patten Dx/Rx/DC Orders Clinical Impression: Abdominal pain Instructions: ED Abdominal Pain Unkn Cause Fem Prescriptions: New oxycodone-acetaminophen [oxycodone-acetaminophen] 5-325 mg tablet 1 tab PO Q6H PRN PRN (Reason: Pain) 3 Days Qty: 12 0RF dicyclomine 20 mg tablet 20 mg PO TID PRN (Reason: abdominal pain) Qty: 15 0RF No Action Synthroid 125 mcg PO DAILY etodolac 300 MG capsule 300 mg PO TIDCM Qty: 30 0RF Rx Instructions: with food hydrocodone-acetaminophen 1 TABLET tablet 1 - 2 tab PO Q6H PRN PRN (Reason: Pain) Qty: 20 0RF Rx Instructions: causes drowsiness magnesium citrate 300 ML solution 300 ml PO X1 Qty: 1200 0RF Rx Instructions: 300 ML EVERY 8 HOURS UNTIL LARGE BM Primary Care Provider: Ajay Walker Referrals: Ajay Walker MD [Primary Care Provider] - 1 Week
[2023-08-11 15:14] VITALS: BP 108/69; PULSE 72; RESP 15; O2SAT 98
== END 2023-08-11 15:17 | disposition home or self-care (01) ==
PROVIDERS: Emergency Provider Emergency Medicine; PCP Family Medicine; Visit Provider Emergency Medicine
DX: R10.30 Lower abdominal pain, unspecified (principal); F17.210 Nicotine dependence, cigarettes, uncomplicated
CPT/HCPCS: 74177; 80053; 81001; 83690; 85025; 96360; 99283; J7030; Q9967; A4216

== ENCOUNTER 2024-02-12 10:32 | Emergency (ER) | payer MEDICARE, SELFPAY ==
--- NOTE | 2024-02-12 10:42 | EKG12_ITS ---
Test Reason : SYNCOPE Blood Pressure : / mmHG Vent. Rate : 047 BPM Atrial Rate : 047 BPM P-R Int : 174 ms QRS Dur : 094 ms QT Int : 422 ms P-R-T Axes : 073 -10 -27 degrees QTc Int : 373 ms Sinus bradycardia Nonspecific ST and T wave abnormality Abnormal ECG Confirmed by LYDIA GUEVARA, DESTINY ([id number]), web editor DURGA MENA ([id number]) on 02/13/2024 8:09:16 AM Referred By: Confirmed By:DESTINY FREEMAN MD
[2024-02-12 10:45] VITALS: BP 133/62; PULSE 42; RESP 12; TEMP 36.6; O2SAT 97; BMI 24.1
--- NOTE | 2024-02-12 10:55 | RAD_ITS ---
EXAM: XR CHEST, 1 VIEW CLINICAL INDICATION: syncope TECHNIQUE: Frontal view of the chest. COMPARISON: No relevant prior studies available. FINDINGS: LUNGS AND PLEURAL SPACES: No significant abnormality. No consolidation or edema. No pneumothorax. No effusion. HEART: No significant abnormality. Cardiac silhouette not enlarged. MEDIASTINUM: Central airways and mediastinal contour are unremarkable. BONES/JOINTS: Degenerative changes in the spine. No acute fracture. SOFT TISSUES: No significant abnormality. RAD/Chest 1 View (Portable) IMPRESSION: No acute findings in the chest. Electronically Signed: Michele Henley DO at 11:19 EDT ,
[2024-02-12 10:59] LABS: Absolute Lymphocyte Count 1.22 X10^3/uL (0.83-4.51); Absolute Neutrophil Count 3.3 X10^3/uL (2.0-7.7); Basophil# 0.04 X10^3/uL; Basophil% 0.8 % (0-1); Eosinophil# 0.08 X10^3/uL; Eosinophils% 1.6 % (0-5); Hematocrit 40.9 % (37-47); Hemoglobin 13.6 g/dL (12.0-15.0); Lymphocyte # 1.22 X10^3/ul (0.83-4.51); Lymphocyte % 24.4 % (19-41); Mean Corp Hgb Conc 33.3 g/dL (32-36); Mean Corpuscular Hgb 31.6 pg (27.0-32.0); Mean Corpuscular Volume 94.9 fL (81-99); Mean Platelet Vol. 9.5 fl (6.2-12.0); Monocyte# 0.38 X10^3/uL; Monocyte% 7.6 % (0-10); NRBC Flagged by Analyzer 0 % (0-5); Neutrophil # 3.26 X10^3/uL (2.7-7.7); Neutrophil % 65.4 % (47-70); Platelet Count 205 K/mm3 (150-450); RBC Distribution Width CV 12.8 % (11.6-14.6); RBC Distribution Width SD 45.1 fl (35.1-43.9); Red Blood Count 4.31 M/mm3 (4.2-5.4)
[2024-02-12 11:10] LABS: Anion Gap 4 (5-15); BUN 19 mg/dL (7-18); BUN/Creat Ratio 20.2 RATIO (10-20); Calcium,Total 9.3 mg/dL (8.5-10.1); Chloride 105 mmol/L (98-107); Creatinine, Serum 0.94 mg/dL (0.55-1.02); EST Glomerular Filtration Rate 63 mL/min (>60); Est Glom Filt Rate - Afr Amer 76 mL/min (>60); Estimated Creatinine Clearance 52.26 ml/min; Glucose 120 mg/dL (74-106); Potassium 3.9 mmol/L (3.5-5.1); Sodium Level 139 mmol/L (136-145)
[2024-02-12 11:33] VITALS: BP 122/68; PULSE 49; RESP 12; O2SAT 95
[2024-02-12 12:00] VITALS: BP 121/64; PULSE 53; RESP 14; O2SAT 96
[2024-02-12 12:13] LABS: Troponin-I HS 10 pg/mL (3.0-54.0)
--- NOTE | 2024-02-12 12:29 | EX.ED.DYSGE1 ---
HPI History of Present Illness Chief Complaint: Syncope [facility] Medical History (Updated 02/12/24 @ 13:[address] Rock Patten DO) Hypothyroid Home Medications ?Medication ?Instructions ?Recorded ?Last Taken ?Type Synthroid 125 mcg PO DAILY 08/17/14 Unknown History estradiol 0.01% (0.1 mg/gram) 1 g vaginal QWEEK 02/12/24 Unknown History vaginal cream levothyroxine 137 mcg tablet 137 mcg PO DAILY 02/12/24 Unknown History oxybutynin chloride 5 mg tablet 5 mg PO QHS 02/12/24 Unknown History Allergy/AdvReac Type Severity Reaction Status Date / Time No Known Allergies Allergy Verified 02/12/24 11:02 Social History Smoking Status: Current some day smoker tobacco type: cigarettes EXAM Physical Exam Const Vital Signs: 02/12/24 10:45 02/12/24 11:20 02/12/24 11:33 Temperature 97.8 F Temperature Source Temporal Pulse Rate 42 L 49 L Pulse Rate [Lying] Pulse Rate [Sitting (for 1 minute prior to obtaining)] Pulse Rate [Standing (for 1 minute prior to obtaining)] Respiratory Rate 12 12 Respiratory Effort Normal Respiratory Pattern Normal Blood Pressure 133/62 H 122/68 H Blood Pressure [Lying] Blood Pressure [Sitting (for 1 minute prior to obtaining)] Blood Pressure [Standing (for 1 minute prior to obtaining)] Blood Pressure Mean 85 86 Blood Pressure Mean [Lying] Blood Pressure Mean [Sitting (for 1 minute prior to obtaining)] Blood Pressure Mean [Standing (for 1 minute prior to obtaining)] Pulse Ox 97 95 Oxygen Delivery Method Room Air Room Air 02/12/24 12:00 02/12/24 12:59 02/12/24 13:37 Temperature 97.4 F L Temperature Source Pulse Rate 53 L 53 L Pulse Rate [Lying] 58 L Pulse Rate [Sitting (for 1 minute prior to obtaining)] 62 Pulse Rate [Standing (for 1 minute prior to obtaining)] 65 Respiratory Rate 14 16 Respiratory Effort Respiratory Pattern Blood Pressure 121/64 H 97/62 Blood Pressure [Lying] 103/58 L Blood Pressure [Sitting (for 1 minute prior to obtaining)] 104/53 L Blood Pressure [Standing (for 1 minute prior to obtaining)] 107/58 L Blood Pressure Mean 83 73 Blood Pressure Mean [Lying] 73 Blood Pressure Mean [Sitting (for 1 minute prior to obtaining)] 70 Blood Pressure Mean [Standing (for 1 minute prior to obtaining)] 74 Pulse Ox 96 99 Oxygen Delivery Method MDM MDM MDM Narrative Medical decision making narrative: Differential diagnosis includes vasovagal syncope anemia dehydration Gastrolyte disturbance primary cardiac dysrhythmia including complete heart block Basic blood work shows a hemoglobin of 13 platelet count of 205. 2 sets of cardiac enzymes are normal. Magnesium sodium potassium within normal limits glucose 120. My independent interpretation of the chest x-ray is no acute process normal mediastinal silhouette. Patient was observed has remained in his mostly a sinus bradycardic rhythm. Sometimes into the 60s. I wonder if this is her resting heart rate as she exercises regularly including walking significant hills. We talked about not being able to diagnose cardiac dysrhythmias unless found on monitoring and the possibility of needing requiring a Holter monitor. Patient is understanding the plan. She is orthostatic negative. She has been able to eat and drink. To be discharged home with follow-up History & Record Review Discussion w/independent historian: Patient Lab Data Attestation: I reviewed the patient's lab results. Labs: Laboratory Results - last 24 hr 02/12/24 02/12/24 10:50 12:40 WBC 5.0 RBC 4.31 Hgb 13.6 Hct 40.9 MCV 94.9 MCH 31.6 MCHC 33.3 RDW Std Deviation 45.1 H RDW Coeff of Wilfred 12.8 Plt Count 205 MPV 9.5 Immature Gran % (Auto) 0.200 Neut % (Auto) 65.4 Lymph % (Auto) 24.4 [place] % (Auto) 7.6 Eos % (Auto) 1.6 Baso % (Auto) 0.8 Absolute Neuts (auto) 3.3 Absolute Lymphs (auto) 1.22 Nucleated RBC % 0 Sodium 139 Potassium 3.9 Chloride 105 Carbon Dioxide 30.0 Anion Gap 4 L BUN 19 H Creatinine 0.94 Estim Creat Clear Calc 52.26 Est GFR (MDRD) Af Amer 76 Est GFR (MDRD) Non-Af 63 BUN/Creatinine Ratio 20.2 H Glucose 120 H Calcium 9.3 Magnesium 2.0 Troponin I High Sens 10 11 Radiography Diagnostic Testing: Clinical Impression(s) from Imaging Studies Chest X-Ray 02/12/24 10:55 IMPRESSION: No acute findings in the chest. Electronically Signed: Michele Henley DO at 11:19 EDT , Discharge Plan Triage Chief Complaint: Syncope ED Provider: Rock Patten Dx/Rx/DC Orders Clinical Impression: Syncope, Bradycardia Instructions: ED Fainting, Vagal Reaction Prescriptions: No Action Synthroid 125 mcg PO DAILY levothyroxine 137 mcg tablet 137 mcg PO DAILY estradiol 0.01 % (0.1 mg/gram) cream 1 g vaginal QWEEK oxybutynin chloride 5 mg tablet 5 mg PO QHS Primary Care Provider: Care Physician,No Primary Referrals: Care Physician,No Primary [Primary Care Provider] - Activity Restrictions/Additional Instructions: I would recommend following up with her primary care doctor to discuss Holter monitor testing. Print Language: Telugu Disposition Disposition: Home, Self Care Discharge Date/Time: 02/12/24 13:38
[2024-02-12 12:59] VITALS: BP 103/58; BP 104/53; BP 107/58; PULSE 58; PULSE 62; PULSE 65
[2024-02-12 13:07] LABS: Troponin-I HS 11 pg/mL (3.0-54.0)
[2024-02-12 13:37] VITALS: BP 97/62; PULSE 53; RESP 16; TEMP 36.3; O2SAT 99
== END 2024-02-12 13:38 | disposition home or self-care (01) ==
PROVIDERS: Emergency Provider Emergency Medicine; Visit Provider Emergency Medicine
DX: R55 Syncope and collapse (principal); R00.1 Bradycardia, unspecified; E03.9 Hypothyroidism, unspecified; F17.210 Nicotine dependence, cigarettes, uncomplicated; Z79.890 Hormone replacement therapy; Z79.899 Other long term (current) drug therapy
CPT/HCPCS: 71045; 80048; 83735; 84484; 85025; 93005; 99284

== ENCOUNTER 2024-05-05 16:23 | Emergency (ER) | payer MEDICARE, OTHER, SELFPAY ==
[2024-05-05 16:24] VITALS: BP 136/77; PULSE 58; RESP 16; TEMP 36.6; O2SAT 96; BMI 22.8
--- NOTE | 2024-05-05 16:50 | EKG12_ITS ---
Test Reason : general Blood Pressure : / mmHG Vent. Rate : 054 BPM Atrial Rate : 054 BPM P-R Int : 164 ms QRS Dur : 112 ms QT Int : 412 ms P-R-T Axes : 042 -18 -50 degrees QTc Int : 390 ms Sinus bradycardia T wave abnormality, consider anterolateral ischemia Abnormal ECG Confirmed by Michael Clifton ([id number]), advertising editor DURGA MENA ([id number]) on 05/07/2024 11:00:39 AM Referred By: Confirmed By:Michael Clifton
--- NOTE | 2024-05-05 16:51 | EDS_ITS ---
HPI History of Present Illness Chief Complaint: General Illness Informant: patient Onset/Context/Timing Onset: Days Context: Gradual Onset Timing: Continuous Current Severity: Mild Maximum Severity: Mild Narrative Narrative: 68-year-old female history of hypothyroidism. States she has been sick for about 5 days since Tuesday with bodyaches. Decreased oral intake and states she is lightheaded now with standing. No vomiting or diarrhea. No documented fever. No dysuria or abdominal pain. No chest pain or shortness of breath. Prior similar symptoms: No Recent Illness/Hospitalization: No PFSH PFSH Medical History Hypothyroid Home Medications ?Medication ?Instructions ?Recorded ?Last Taken ?Type Synthroid 125 mcg PO DAILY 08/17/14 Unknown History estradiol 0.01% (0.1 mg/gram) 1 g vaginal QWEEK 02/12/24 Unknown History vaginal cream levothyroxine 137 mcg tablet 137 mcg PO DAILY 02/12/24 Unknown History oxybutynin chloride 5 mg tablet 5 mg PO QHS 02/12/24 Unknown History Allergy/AdvReac Type Severity Reaction Status Date / Time No Known Allergies Allergy Verified 05/05/24 16:24 Social History Smoking Status: Current some day smoker tobacco type: cigarettes ROS ROS ED ROS Narrative Generalized malaise. Decreased oral intake. Constitutional Constitutional ED: Reports fever(s) and subjective; Denies chills Eyes Eyes: Denies blurry vision ENT ENT ED: Denies ear pain Cardiovascular Cardiovascular: Denies chest pain Respiratory/Chest Respiratory/Chest: Denies cough Gastrointestinal Gastrointestinal: Denies abdominal pain, constipation, diarrhea, melena, nausea or vomiting Genitourinary Genitourinary ED: Denies dysuria or hematuria Musculoskeletal Musculoskeletal: Denies arthralgias Integumentary Denies abscess Neurologic Neurologic: Denies headache(s) Psychiatric Psychiatric: Denies anxiety Endocrine Endocrinology: Denies cold intolerance Hematologic/Lymphatic Hematologic/Lymphatic: Reports none Allergic/Immunologic Allergic/Immunologic ED: Denies mouth swelling, tongue swelling or urticaria EXAM Physical Exam Narrative Exam Narrative: 68-year-old female no acute distress vital signs stable afebrile. Pulse ox 96% on room air no hypoxia. H EENT exam pupils round react to light. Mild dry mucous membranes. Posterior pharynx unremarkable. Nondescript rash on the face. No petechiae or purpura. No sloughing of skin.Pustules. Primarily on her forehead. Neck nontender no lymphadenopathy. Lungs clear equal symmetrical. Heart regular rhythm no murmur. Chest wall and ribs nontender. Abdomen soft nontender. No peritoneal signs. All 4 extremities. Nontender no edema. Normal motor strength and range of motion. Back nontender. Neurologically awake and alert no focal motor deficits. Benign exam. Const Vital Signs: 05/05/24 16:24 05/05/24 16:35 05/05/24 18:24 Temperature 97.9 F Temperature Source Oral Pulse Rate 58 L 62 Respiratory Rate 16 16 Respiratory Effort Normal Respiratory Pattern Normal Blood Pressure 136/77 H 108/53 L Blood Pressure Mean 96 71 Pulse Ox 96 Oxygen Delivery Method Room Air Positive well nourished and well developed; Negative for obese, cachectic, contractures or unkempt General Appearance ED: well developed and NAD; Negative for unkempt, cachectic, contractures, cyanotic, diaphoretic or pallor Nutritional Appearance: Negative for cachectic or obese HEENT Reports dry mucous membranes; Denies moist mucous membranes Negative for trauma or tenderness Mouth ED: Yes dry mucous membranes Mouth: dry mucous membranes Eyes PERRL and EOMs intact bilaterally General Eye ED: Negative for pale conjunctiva or scleral icterus Neck no lymphadenopathy, supple and no JVD General: Negative for tenderness Lymph Lymphatic: Negative for other Chest Wall inspection of chest normal and palpation of chest normal Chest: Negative for other Resp normal respiratory effort and clear to auscultation bilaterally Effort and Inspection: Negative for retractions or pain with movement Auscultation: Negative for rales, rhonchi, wheezes or diminished lung sounds Cardio regular rate, regular rhythm, S1 normal heart sound, S2 normal heart sound and no murmurs Palpation: Negative for palpable S3 or palpable S4 Rate: Negative for bradycardia, tachycardic or other Rhythm: Negative for abnormal rhythm GI normal to inspection, nondistended, normoactive bowel sounds, non-tender, non- distended and no masses Inspection: Negative for abdominal distention Auscultation: normoactive bowel sounds Palpation: soft; Negative for tender, guarding, splenomegaly, mass or rebound tenderness present Back/Spine no CVA tenderness General Back: Negative for CVA tenderness Cervical Spine: Negative for cervical spine tenderness Thoracic Spine / Upper Back: Negative for thoracic spinal tenderness or paraspinal muscle tenderness Lumbar Spine / Lower Back: Negative for lumbar spinal tenderness Extremity normal to inspection General Extremety ED: Negative for edema, tenderness or other findings General Extremity: Negative for edema or other findings Neuro oriented x3 and CN's II-XII intact bilaterally Sensorium / Orientation: alert; Negative for orientation impaired, lethargic or stuporous Sensory Exam: No sensory level loss detected Motor Exam: strength 5/5 throughout; Negative for general weakness or strength abnormal Psych mental status grossly normal Appearance: Negative for unkempt Attitude: No agitated Mood & Affect: Negative for depressed, anxious or tearful Skin no rashes or lesions noted and no wounds General Skin Exam: Negative for jaundice or pallor Lesions: No lesion noted Rashes: No rashes noted Trauma: Negative for abrasion Wounds: Negative for wounds noted MDM MDM MDM Narrative Medical decision making narrative: 68-year-old with generalized malaise. May be dehydrated. IV fluids and labs. He is exam benign. They may have had a recent viral syndrome. Repeat exam patient doing well at 6:48 PM. Clinically this appears to be a viral syndrome. Fluids and rest. Follow-up with her doctor if not improving. Return if worse. When she initially stood up she felt lightheaded. She had a liter of fluid. She is feeling improved. The nurse did orthostatic vital signs and her heart rate went up when she stood up. History & Record Review Discussion w/independent historian: Patient Additional record(s) reviewed:: Prior inpatient record, Prior outpatient record, Prior ED visit and Prior labs Lab Data Attestation: I reviewed the patient's lab results. Lab results narrative: CBC shows a white count of 2. H&H 14 and 41. Platelets 78. Both her white count and platelets are low. Normal hemoglobin. Electrolytes show potassium 3.3. Gap 8. BUN and creatinine are 21 and 0.8. Glucose 149. Urinalysis negative. No nitrates. No white or red cells. No bacteria. Patient deferred on the COVID and flu test. Labs: Laboratory Results - last 24 hr 05/05/24 05/05/24 17:01 17:09 WBC 2.0 L RBC 4.56 Hgb 14.3 Hct 41.2 MCV 90.4 MCH 31.4 MCHC 34.7 RDW Std Deviation 40.0 RDW Coeff of Wilfred 12.0 Plt Count 78 L MPV 11.3 Immature Gran % (Auto) 0.000 Neut % (Auto) 41.0 L Lymph % (Auto) 40.5 [place] % (Auto) 16.5 H Eos % (Auto) 1.0 Baso % (Auto) 1.0 Absolute Neuts (auto) 0.8 L Absolute Lymphs (auto) 0.81 L Nucleated RBC % 0 Differential Comment SCANNED Atypical Lymphocytes RARE Sodium 140 Potassium 3.3 L Chloride 104 Carbon Dioxide 28.0 Anion Gap 8 BUN 21 H Creatinine 0.86 Estim Creat Clear Calc 57.12 Est GFR (MDRD) Af Amer 85 Est GFR (MDRD) Non-Af 70 BUN/Creatinine Ratio 24.5 H Glucose 149 H Calcium 9.2 Urine Color Yellow Urine Clarity Clear Urine pH 6.0 Ur Specific [place] 1.020 Urine Protein 30 H Urine Glucose (UA) Normal Urine Ketones 5 H Urine Occult Blood 10 H Urine Nitrite Negative Urine Bilirubin Negative Urine Urobilinogen 1 H Ur Leukocyte Esterase 25 H Urine RBC 0 SEEN Urine WBC 0 SEEN Ur Squamous Epith Cells 0 SEEN Urine Bacteria 0 SEEN Urine Mucus 0 SEEN Radiography Chest X-Ray - ED: 2 View, Read by ED Physician, Normal, Heart, Lungs, Mediastinum, Bony Structures and No Acute Disease Diagnostic Testing: Clinical Impression(s) from Imaging Studies Chest X-Ray 05/05/24 17:20 IMPRESSION: Hyperinflated lungs with mild interstitial prominence likely secondary to COPD. No focal pneumonia. Electronically Signed: Michele Henley DO at 18:01 EDT , Chest x-ray, 2 views, AP and lateral, interpreted by myself and radiologist shows no acute abnormality. Normal cardiac silhouette. Normal lung posadas. Rhythm Strip Rhythm Strip: Sinus bradycardia Rate: 54 Ectopy: None EKG Initial EKG: Attestation: I personally reviewed and interpreted this EKG as follows: Interpretation: Sinus Bradycardia Comments: Sinus bradycardia rate of 54 no acute signs of ID nor ischemia. Discharge Plan Triage Chief Complaint: General Illness Other Complaint: Rash ED Provider: Kye Ramon Dx/Rx/DC Orders Clinical Impression: Viral syndrome Instructions: ED Viral Syndrome (Adult) Prescriptions: No Action Synthroid 125 mcg PO DAILY levothyroxine 137 mcg tablet 137 mcg PO DAILY estradiol 0.01 % (0.1 mg/gram) cream 1 g vaginal QWEEK oxybutynin chloride 5 mg tablet 5 mg PO QHS Primary Care Provider: Care Physician,No Primary Referrals: Russell Tian MD [Med Staff - Traveling Repair Accountant] - 3-5 Days if not improving Care Physician,No Primary [Primary Care Provider] - Activity Restrictions/Additional Instructions: I suspect you have a viral syndrome. Your chest x-ray was unremarkable. Plenty of fluids and rest. Tylenol and/or Motrin for body aches. Follow-up with your doctor if not improving. Return if worse. Print Language: Malay Disposition Disposition: Home, Self Care
[2024-05-05 17:14] LABS: Bacteria 0 SEEN /hpf (None Seen); Mucous, Urine 0 SEEN /hpf (<or=2+); Red Blood Cells-Urine 0 SEEN /hpf (0-5); Squamous Epithelial Cells - UA 0 SEEN /hpf (5-10); White Blood Cells 0 SEEN /hpf (0-5)
[2024-05-05 17:17] LABS: Absolute Lymphocyte Count 0.81 X10^3/uL (0.83-4.51); Absolute Neutrophil Count 0.8 X10^3/uL (2.0-7.7); Basophil# 0.02 X10^3/uL; Eosinophil# 0.02 X10^3/uL; Hematocrit 41.2 % (37-47); Hemoglobin 14.3 g/dL (12.0-15.0); Lymphocyte # 0.81 X10^3/ul (0.83-4.51); Lymphocyte % 40.5 % (19-41); Mean Corp Hgb Conc 34.7 g/dL (32-36); Mean Corpuscular Hgb 31.4 pg (27.0-32.0); Mean Corpuscular Volume 90.4 fL (81-99); Mean Platelet Vol. 11.3 fl (6.2-12.0); Monocyte# 0.33 X10^3/uL; Monocyte% 16.5 % (0-10); NRBC Flagged by Analyzer 0 % (0-5); Neutrophil # 0.82 X10^3/uL (2.7-7.7); POSITIVE COUNT YES; POSITIVE DIFFERENTIAL YES; POSITIVE MORPHOLOGY YES; Platelet Count 78 K/mm3 (150-450); Red Blood Count 4.56 M/mm3 (4.2-5.4)
[2024-05-05 17:19] LABS: Color, Urine Yellow (Yellow); Glucose, Dipstick Normal (Normal); Ketone-Dipstick 5 mg/dl (Negative); Leukocyte Esterase-Dipstick 25 /ul (Negative); Nitrite-Dipstick Negative (Negative); Occult Blood-Urine 10 /ul (Negative); Protein-Dipstick 30 mg/dl (Negative); Urine Bilirubin Dipstick Negative (Negative); Urine Clarity Clear (Clear); Urine Urobilinogen 1 mg/dl (Normal)
[2024-05-05] MEDS: 0.9% Normal Saline (1000mL) 1,000 ML 1000 ML IV (17:19)
--- NOTE | 2024-05-05 17:20 | RAD_ITS ---
EXAM: XR CHEST, 2 VIEWS CLINICAL INDICATION: weakness TECHNIQUE: Frontal and lateral views of the chest. COMPARISON: 02/12/2024 FINDINGS: LUNGS AND PLEURAL SPACES: Hyperinflated lungs with mild interstitial prominence likely secondary to COPD. No focal pneumonia. No pneumothorax. No effusion. HEART: No significant abnormality. Cardiac silhouette not enlarged. MEDIASTINUM: Central airways and mediastinal contour are unremarkable. BONES/JOINTS: Degenerative changes in the spine. No acute fracture. SOFT TISSUES: No significant abnormality. VASCULATURE: Atherosclerosis. RAD/Chest PA and Lateral IMPRESSION: Hyperinflated lungs with mild interstitial prominence likely secondary to COPD. No focal pneumonia. Electronically Signed: Michele Henley DO at 18:01 EDT ,
[2024-05-05 17:24] LABS: Differential Indicated SCAN CRITERIA MET
[2024-05-05 17:29] LABS: Anion Gap 8 (5-15); BUN 21 mg/dL (7-18); BUN/Creat Ratio 24.5 RATIO (10-20); Calcium,Total 9.2 mg/dL (8.5-10.1); Chloride 104 mmol/L (98-107); Creatinine, Serum 0.86 mg/dL (0.55-1.02); EST Glomerular Filtration Rate 70 mL/min (>60); Est Glom Filt Rate - Afr Amer 85 mL/min (>60); Estimated Creatinine Clearance 57.12 ml/min; Glucose 149 mg/dL (74-106); Potassium 3.3 mmol/L (3.5-5.1); Sodium Level 140 mmol/L (136-145)
[2024-05-05 17:56] LABS: Atypical Lymphocyte RARE %; Differential Comment SCANNED
[2024-05-05 18:24] VITALS: BP 108/53; PULSE 62; RESP 16
[2024-05-05 19:04] VITALS: BP 108/53; PULSE 72; RESP 16; TEMP 36.9; O2SAT 99
== END 2024-05-05 19:05 | disposition home or self-care (01) ==
PROVIDERS: Emergency Provider Emergency Medicine; Visit Provider Emergency Medicine
DX: B34.9 Viral infection, unspecified (principal); R42 Dizziness and giddiness; R53.81 Other malaise; R21 Rash and other nonspecific skin eruption; E03.9 Hypothyroidism, unspecified; F17.210 Nicotine dependence, cigarettes, uncomplicated; Z79.890 Hormone replacement therapy
CPT/HCPCS: 71046; 80048; 81001; 85025; 93005; 96360; 99284; J7030; A4216

== ENCOUNTER → 2024-05-22 | Outpatient (CLI) | payer MEDICARE, OTHER, SELFPAY ==
[2024-05-22 11:32] LABS: Erythrocyte Sedimentation Rate 5 mm/hr (0-30)
[2024-05-22 13:29] LABS: CPK Total, Creatine Kinase 39 U/L (26-192); CRP < 2.90 mg/L (0.0-3.0); Follicle Stimulating Hormone 81.2 mIU/mL; Luteinizing Hormone 49.4 mIU/mL
[2024-05-25 14:10] LABS: Anti-Centromere B Ab <0.2 AI (0.0-0.9); Anti-Chromatin <0.2 AI (0.0-0.9); Anti-Jo <0.2 AI (0.0-0.9); Anti-Scleroderma-70 AB <0.2 AI (0.0-0.9); Anti-dsDNA Ab 7 IU/mL (0-9); Beef <0.10 kU/L (Class 0); Chocolate <0.10 kU/L (Class 0); Codfish <0.10 kU/L (Class 0); Corn <0.10 kU/L (Class 0); Egg, Whole <0.10 kU/L (Class 0); Milk (Cow) <0.10 kU/L (Class 0); Mussels <0.10 kU/L (Class 0); Peanut <0.10 kU/L (Class 0); Pork <0.10 kU/L (Class 0); RNP Ab 0.4 AI (0.0-0.9); SJOGREN'S Anti-SS-A test < 0.2 AI (0.0-0.9); SJOGREN'S Anti-SS-B test < 0.2 AI (0.0-0.9); Salmon <0.10 kU/L (Class 0); Shrimp <0.10 kU/L (Class 0); Smith Ab <0.2 AI (0.0-0.9); Soybean <0.10 kU/L (Class 0); Tuna <0.10 kU/L (Class 0); Vitamin D 1,25-Dihydroxy 66.6 pg/mL (24.8-81.5); Wheat <0.10 kU/L (Class 0)
== END | disposition home or self-care (01) ==
PROVIDERS: Referring Provider Internal Medicine Gastroenterology; Visit Provider Internal Medicine Gastroenterology
DX: R19.8 Other specified symptoms and signs involving the digestive system and abdomen (principal)
CPT/HCPCS: 36415; 82085; 82088; 82164; 82384; 82533; 82550; 82652; 82672; 82784; 82785; 83001; 83002; 83516; 84165; 85652; 86003; 86005; 86037; 86140; 86225; 86235; 86255; 86334

== ENCOUNTER → 2024-05-26 | Outpatient (CLI) | payer MEDICARE, OTHER, SELFPAY ==
--- NOTE | 2024-05-26 10:55 | RAD_ITS ---
EXAM: XR ABDOMEN, 1 VIEW CLINICAL INDICATION: sitz marker TECHNIQUE: Frontal supine view of the abdomen/pelvis. COMPARISON: No relevant prior studies available. FINDINGS: LOWER THORAX: No acute pathology. GASTROINTESTINAL TRACT: Nonobstructive bowel gas pattern. ORGANS: Unremarkable as visualized. No organomegaly. No abnormal calcifications. BONES/JOINTS: No acute pathology. SOFT TISSUES: No acute pathology. OTHER FINDINGS: Two Sitz markers are seen overlying the left mid abdomen. RAD/Abdomen Single View IMPRESSION: 1. Two Sitz markers are seen overlying the left mid abdomen. 2. Nonobstructive bowel gas pattern. Electronically Signed: Michael Thompson MD at 4:23 EDT ,
== END | disposition home or self-care (01) ==
PROVIDERS: Referring Provider Internal Medicine Gastroenterology; Visit Provider Internal Medicine Gastroenterology
DX: R19.8 Other specified symptoms and signs involving the digestive system and abdomen (principal)
CPT/HCPCS: 74018